=== PATIENT | female | born 1980 | race Caucasian/White ===

== ENCOUNTER 2025-04-29 13:40 | Inpatient (IN) | payer MEDICAID ==
[~2025-04-29] VITALS: Ht 167.6 cm; Wt 103.0 kg
--- NOTE | 2025-04-29 14:01 | ELECTROCARDIOGRAPH REPORT ---
[facility] Test Date: 2025-04-29 Test Time: 13:57:39 Pat Name: CHIQUITA WILDE Department: [facility]- Patient ID: [id number] Room: Gender: F [employer] Machine Operator: : 1980 Requested By: RENEE KERNS Order Number: [id number] Reading MD: Dr. Renee Kerns Measurements Intervals [place] Rate: 90 P: 57 SC: 171 QRS: 33 QRSD: 97 T: 31 QT: 378 QTc: 463 Interpretive Statements Sinus rhythm LAE, consider biatrial enlargement Abnormal inferior Q waves Borderline T abnormalities, anterior leads Electronically Signed On 04-29-2025 14:36:[address] Renee Kerns Please click the below link to view image of tracing.
--- NOTE | 2025-04-29 14:20 | RADIOLOGY REPORT ---
CHEST RADIOGRAPH Indication: CP Technique: Single frontal view of the chest was obtained Comparison: None FINDINGS: Lines and Tubes: None Lungs: No focal consolidation. Pleura: No effusion. No pneumothorax. Cardiomediastinal contours: Unremarkable Bones: No acute osseous abnormality. IMPRESSION: No acute cardiopulmonary disease.
[2025-04-29 14:21] LABS: MEAN PLATELET VOLUME 8.6 FL (7.4-10.4); RED CELL DISTRIBUTION WIDTH 14.8 % (11.5-14.5)
[2025-04-29 14:43] LABS: CREATININE 0.86 MG/DL (0.40-0.90); PRO BRAIN NATRIURETIC PEPTIDE 150 PG/ML (0-125); TOTAL CARBON DIOXIDE 22.6 MMOL/L (24-32); eCRCL 77 ML/MIN; eGFR 71 ML/MIN
--- NOTE | 2025-04-29 16:15 | Physician Documentation ---
History of Present Illness ~ Chief Complaint: Seizure Stated Complaint: SEIZURE Time Seen by MD: 15:51 OK to notify your PCP?: Yes Source: RN/MD, EMS, RN notes reviewed, EMS notes reviewed, old records Mode of Arrival: EMS, Ambulatory Exam Limitations: no limitations HPI This patient states when she was very young she used to do a fair amount of drugs but basically has led to clean sober life for the last several years. She states five years ago she has a syncopal episode she has had it was shows of dizziness also try germinal neuralgia but has not has a flare-up in three years she has been controlling it with diet she has had a couple episodes of shingles which is odd but she thinks she has controlled it with diet as well mostly just a kind of or diet. She has been doing well relatively speaking. 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 [place] she does not remember that is when she made many of her life changes and has never followed up does not have a primary care physician all of a sudden today at work she developed seizure-like activity she does not recall the event she was told that she had he was confused and postictal she did bite her tongue she did not have any incontinence. She denies any headache or vision changes she is feeling a bit better but she is now here for evaluation and care. She denies any weakness numbness no fevers or chills. Medication Reconciliation Allergies: Coded Allergies: Sulfa (Sulfonamide Antibiotics) (Verified Allergy, Unknown, 04/29/25) Past Medical History Past Medical History: Heart Valve Disease Smoking Status: Current every day smoker Alcohol Use: Sober Drug Use: other (X polysubstance drug abuser) Review of Systems All Other Systems at this time: Reviewed and Negative Physical Exam Vital Signs: RN Vital Signs have been reviewed: Yes, Temperature: 97.8, Source: Temporal, Heart Rate: 95, Respiratory Rate: 18, BP: 160/105, Pulse Oximetry: 98, Weight: 103.000 Physical Exam General: The patient is well developed, well nourished, nontoxic appearing and is in no acute distress. Skin: [place], warm and dry with no rashes. HEENT: Head was normocephalic and atraumatic. Eyes - pupils equal, round, reactive to light and accommodation. Extraocular movements were intact. Conjunctivae were nonicteric. The mouth and oropharynx were clear with moist mucous membranes. Neck: Supple and nontender. There was no jugular venous distention, lymphadenopathy, thyromegaly or masses. Chest: Clear to auscultation bilaterally without wheezes, rales or rhonchi. No accessory muscle use. Heart: Rate regular and rhythmic. S1, S2. No murmurs. Palpation of the chest wall was normal. No rubs or thrills. Abdomen: Soft, nontender and nondistended. Positive bowel sounds. No guarding or rebound. Extremities: No cyanosis, clubbing or edema. The patient moves all extremities. Pulses were equal and symmetric. Neurologic: Cranial nerves II-XII were intact. Sensation was intact to light touch throughout. Motor strength was 5/5 in all four extremities. Deep tendon reflexes were intact in both upper and lower extremities. Psychologic: The patient was oriented to person, place and time. The patient demonstrated appropriate judgement and insight. Progress Results/Orders Reviewed/noted all lab results: Yes Results/Orders Orders - BURAK HERRERA MD Chest,Single View (04/29/25 14:10) Monitor (04/29/25 13:48) Saline Lock (04/29/25 13:48) Oxygen (04/29/25 13:48) Electrocardiogram (04/29/25 13:48) Ct Head (04/29/25 16:30) [place] Prov.Neuro Consult (04/29/25 16:08) Page Hospitalist (04/29/25 17:04) Fill Out Med Reconciliation (04/29/25 17:04) [place] Prov.Neuro Consult (04/29/25 17:06) Mri Head (04/29/25 17:11) Completed Orders - BURAK HERRERA MD Chest,Single View (04/29/25 14:10) Cbc/Diff (04/29/25 13:48) BMP (04/29/25 13:48) PBNP (04/29/25 13:48) Electrocardiogram (04/29/25 13:48) Hs Troponin I W Calculations (04/29/25 13:48) Hs Troponin I W Calculations (04/29/25 15:48) Hs Troponin I W Calculations (04/29/25 16:48) Ct Head (04/29/25 16:30) Levetiracetam-[id number]/100ml (Levetira (04/29/25 16:10) Drug Screen, Urine (04/29/25 16:11) MG (04/29/25 14:05) CK (04/29/25 14:05) Medications Received in ER Medications (Trade) Dose Ordered Sig/Roselyn Route PRN Reason Start Time Stop Time Status Last Admin Dose Admin Levetiracetam 100 ml @ 400 mls/hr ONCE ONCE IV 04/29/25 16:10 04/29/25 16:24 DC 04/29/25 16:21 400 MLS/HR Sodium Chloride 1,000 ml @ 70 mls/hr [id number] IV 04/29/25 17:15 04/29/25 17:45 70 MLS/HR Vital Signs 04/29/25 04/29/25 13:49 15:21 Temp 97.8 Pulse 80 95 Resp 16 18 B/P (MAP) 163/100 160/105 (123) Pulse Ox 98 98 Laboratory Tests Test 04/29/25 14:05 04/29/25 15:45 04/29/25 16:19 04/29/25 17:06 White Blood Count 10.1 Red Blood Count 4.44 Hemoglobin 13.9 Hematocrit 40.6 Mean Corpuscular Volume 91.5 Mean Corpuscular Hemoglobin 31.3 H Mean Corpuscular Hemoglobin Concent 34.3 Red Cell Distribution Width 14.8 H Platelet Count 177 Mean Platelet Volume 8.6 Neutrophils (%) (Auto) 65.0 Lymphocytes (%) (Auto) 26.3 Monocytes (%) (Auto) 7.1 Eosinophils (%) (Auto) 1.3 Basophils (%) (Auto) 0.3 Neutrophils # (Auto) 6.6 Lymphocytes # (Auto) 2.6 Monocytes # (Auto) 0.7 Eosinophils # (Auto) 0.1 Basophils # (Auto) 0.0 CBC Comment Sodium Level 137 Potassium Level 3.5 Chloride Level 102 Carbon Dioxide Level 22.6 L Anion Gap 12 Blood Urea Nitrogen 14 Creatinine 0.86 Estimated GFR/1.73 m2 71 BUN/Creatinine Ratio 16.3 Glucose Level 132 H Calcium Level 8.9 Magnesium Level 1.8 Total Creatine Kinase 62 Troponin I High Sensitivity 5 10 11 Pro-B-Type Natriuretic Peptide 150 H Albumin 3.5 Chemistry Comments Troponin I High Sens Percent Delta 100 10 Troponin I Hi Sens Absolute Change 5 1 Urine Opiates Screen Negative Urine Methadone Screen Negative Urine Fentanyl Screen Negative Urine Barbiturates Screen Negative Urine Phencyclidine Screen Negative Urine Amphetamines Screen Negative Urine Benzodiazepines Screen Negative Urine Cocaine Screen Negative Urine Cannabinoids Screen Positive Drug Screen Comment Re-Evaluation Re-Evaluation : Re-Evaluation: Improved Progress Patient was seen and examined. Patient was given reassurance. Patient has a new onset seizure. She has a history of his questionable brain mass. CT scan was negative for any new bleed or obvious large mass. Patient will need an MRI as well as a new onset seizure workup. Neurology was consulted. Patient was given a loading dose of Keppra and for now may require medications. EEG was also considered but pending formal consultation by minna layton which is pending at this time. Patient appears comfortable laboratory work shows a normal CBC without anemia leukocytosis or any abnormalities. No signs of infection. Chemistry shows slightly decreased CO2 otherwise within normal limits. Troponins x3 were negative. Patient's tox screen is only positive for marijuana. Patient appears comfortable. Carotid artery ultrasound was negative as well as a negative CT and chest x-ray. Patient was then consulted to the hospitalist service who kindly agreed to admit the patient for further workup and care. Continuous monitor worker interpretation shows normal sinus rhythm heart rate 80s, no ectopy, normal, my interpretation. Pulse oximetry monitor interpretation shows normal oxygenation at 98% room air, normal, my interpretation. EKG/XRAY/CT/US/VASC/MRI EKG : Intepreting Monitor?: Yes Additional Comment Ordering Physician: BURAK HERRERA MD Exam Name: ELECTROCARDIOGRAM Technologist: [facility] Test Date: 2025-04-29 Test Time: 13:57:39 Pat Name: CHIQUITA WILDE Department: [facility]- Patient ID: [facility]-[id number] Room: Gender: F Windows Admin: : 1980 Requested By: BURAK HERRERA Order Number: [id number] Reading MD: Dr. Burak Herrera Measurements Intervals [place] Rate: 90 P: 57 OR: 171 QRS: 33 QRSD: 97 T: 31 QT: 378 QTc: 463 Interpretive Statements Sinus rhythm LAE, consider biatrial enlargement Abnormal inferior Q waves Borderline T abnormalities, anterior leads Electronically Signed On 04-29-2025 14:36:[address] Burak Herrera Please click the below link to view image of tracing. Chest X-Ray : Interpreted By: self Additional Comments CHEST RADIOGRAPH Indication: CP Technique: Single frontal view of the chest was obtained Comparison: None FINDINGS: Lines and Tubes: None Lungs: No focal consolidation. Pleura: No effusion. No pneumothorax. Cardiomediastinal contours: Unremarkable Bones: No acute osseous abnormality. IMPRESSION: No acute cardiopulmonary disease. : CT: head Impression CT CT HEAD Indication: aloc EXAM DATE: 04/29/2025 04:40 PM COMPARISON: None TECHNIQUE: CT of the head without intravenous contrast. RADIATION DOSE: CTDIvol: 65 mGy, DLP: 1098 mGy*cm FINDINGS: There is no intracranial hemorrhage. There is no extra-axial fluid, mass, mass effect or midline shift. The ventricles are midline and normal in size. Basilar cisterns are patent. Wright-white differentiation is maintained. Large right mastoid, middle ear effusion.. Imaged portion of the orbits are unremarkable. IMPRESSION: No intracranial hemorrhage or mass effect. Large right mastoid and middle ear effusion. Vascular : Vascular Study: carotid Impression Indication: Syncope/dizziness Technique: Real-time ultrasound images of the neck vessels with wright-scale, color and wave Doppler were obtained. Comparison: None Findings: Mild atherosclerotic plaque bilaterally. The following peak systolic velocities were recorded in cm/sec: Right internal carotid: 102 Right common carotid: 111 Right external carotid: 93 Right internal/common carotid ratio: 1.0 Left internal carotid: 109 Left common carotid: 132 Left external carotid: 101 Left internal/common carotid ratio: 1.0 Right vertebral artery: Patent with normal antegrade direction of flow. Left vertebral artery: Patent with normal antegrade direction of flow. Impression: No hemodynamically significant stenosis by velocity criteria. Medical Decision Making Additional information obtaine: old records Findings Brain mass versus new onset seizures Differential Dx:Considerations: Include: Hyperventilation, Psychogenic seizure, Due to alcohol withdrawl, Anticonvulsant withdrawl, Due to closed head injury, Due to CVA/TIA, Due to drug ingestion, Due to eclampsia, Due to hypocalcemia, Due to hypoglycemia, Due to hyponatremia, Due to hypoxemia, Idiopathic, Due to mass lesion, Due to meningitis, Syncope, Encephalopathy, Epilepsy-break through, Epilepsy-status, Other Departure Disposition: ADMITTED INPATIENT Admitted to Inpatient Unit: to hospitalist Admission Level of Care: Neuro with Tele Impression: Primary Impression: New onset seizure Condition: Fair Referrals: NO PRIMARY CARE PROVIDER (PCP) Education Educated: Patient Educated regarding: diagnosis, need for follow up, other Signature Scribe Signature: No Attestation: The note accurately reflects work and decisions made by me.Burak Herrera MD 04/29/25 19:48 BURAK HERRERA MD Apr 29, 2025 16:15
[2025-04-29] MEDS: levetiracetam-NACL1000mg/100ml 100 ML IV ONE (16:21)
[2025-04-29 16:55] LABS: URINE AMPHETAMINE SCREEN NEGATIVE (Neg); URINE BARBITUATE SCREEN NEGATIVE (Neg); URINE BENZODIAZEPINES SCREEN NEGATIVE (Neg); URINE CANNABINOID SCREEN POSITIVE (Neg); URINE COCAINE SCREEN NEGATIVE (Neg); URINE METHADONE SCREEN NEGATIVE (Neg); URINE OPIATE SCREEN NEGATIVE (Neg); URINE PHENCYCLIDINE SCREEN NEGATIVE (Neg)
--- NOTE | 2025-04-29 17:07 | RADIOLOGY REPORT ---
CT CT HEAD Indication: aloc EXAM DATE: 04/29/2025 04:40 PM COMPARISON: None TECHNIQUE: CT of the head without intravenous contrast. RADIATION DOSE: CTDIvol: 65 mGy, DLP: 1098 mGy*cm FINDINGS: There is no intracranial hemorrhage. There is no extra-axial fluid, mass, mass effect or midline shift. The ventricles are midline and normal in size. Basilar cisterns are patent. Wright-white differentiation is maintained. Large right mastoid, middle ear effusion.. Imaged portion of the orbits are unremarkable. IMPRESSION: No intracranial hemorrhage or mass effect. Large right mastoid and middle ear effusion.
[2025-04-29] MEDS ORDERED: HYDROcodone/acetaminophen 5mg/325mg tablet PO PRN (17:15)
[2025-04-29] MEDS ORDERED: magnesium sulf-water 4G/100mL 100 ML IV PRN (17:15)
[2025-04-29] MEDS ORDERED: potassium Cl 20 mEq SR tablet PO PRN ×2 (17:15)
[2025-04-29] MEDS ORDERED: magnesium sulf-water 2g/50mL 50 ML IV PRN (17:15)
[2025-04-29] MEDS ORDERED: ondansetron/PF 4mg/2ml inj IV PRN (17:15)
[2025-04-29] MEDS ORDERED: magnesium Cl slow-release 64mg tablet PO PRN (17:15)
[2025-04-29] MEDS ORDERED: magnesium hydroxide 30ml (MOM) UD suspension PO PRN (17:15)
[2025-04-29] MEDS ORDERED: potassium Cl 40MEQ/1/2NS 520ml 520 ML IV PRN (17:15)
[2025-04-29] MEDS ORDERED: bisacodyl 10mg suppository rectal RC PRN (17:15)
[2025-04-29] MEDS: normal saline 1000ml 1,000 ML IV SCH (17:45)
--- NOTE | 2025-04-29 18:27 | VASCULAR REPORT ---
Indication: Syncope/dizziness Technique: Real-time ultrasound images of the neck vessels with blanco-scale, color and wave Doppler were obtained. Comparison: None Findings: Mild atherosclerotic plaque bilaterally. The following peak systolic velocities were recorded in cm/sec: Right internal carotid: 102 Right common carotid: 111 Right external carotid: 93 Right internal/common carotid ratio: 1.0 Left internal carotid: 109 Left common carotid: 132 Left external carotid: 101 Left internal/common carotid ratio: 1.0 Right vertebral artery: Patent with normal antegrade direction of flow. Left vertebral artery: Patent with normal antegrade direction of flow. Impression: No hemodynamically significant stenosis by velocity criteria.
[2025-04-29] MEDS: K and/or MAG REPLACEMENT MC SCH (20:00)
[2025-04-29] MEDS: GADOTERATE MEGLUMINE 7.5 MMOL/15 ML VIAL IV ONE (20:51)
--- NOTE | 2025-04-29 21:01 | HISTORY AND PHYSICAL ---
History & Physical Providers to CC ~ History of Present Illness Reason for Admit\\Complaint: seizure-like activity History of Present Illness Patient is 44-year-old female current smoker and cannabis user. Her last cigarette was two weeks back but as per patient she is smoking since 1-1/2 years on regular basis. She denied use of any alcohol. Use cannabis for neuralgia/neuropathy. She came to ER with her concern regarding seizure-like activity. As per patient she does not have any old history of seizures or dizziness. She eats healthy diet and active in day today life. She mentioned she has lost lot of weight (which is intentional weight loss) . She was prescribed losartan for blood pressure which she is currently not taking. She mentioned her coworkers noticed that she passed out long enough that they called ambulance. As per ER records she passed out for 6 minutes. Passing episode associated with dizziness and nausea. She mentioned she passed out and do not know what happened unable to recall what the co-worker witnessed mentioned . She also mentioned that she had tongue bite but I have not noticed any bruise or sore area over the tongue during exam. As per ER records" This patient states when she was very young she used to do a fair amount of drugs but basically has led to clean sober life for the last several years. She states five years ago she has a syncopal episode she has had it was shows of dizziness also try germinal neuralgia but has not has a flare-up in three years she has been controlling it with diet she has had a couple episodes of shingles which is odd but she thinks she has controlled it with diet as well mostly just a kind of or diet. She has been doing well relatively speaking. 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 She denies any headache or vision changes she is feeling a bit better but she is now here for evaluation and care. She denies any weakness numbness no fevers or chills." Allergies: Coded Allergies: Sulfa (Sulfonamide Antibiotics) (Verified Allergy, Unknown, 04/29/25) Past Medical History Past Medical History Heart Valve Disease? Past Surgical History Surgical History Comment No pertinent past surgical history Past Social History Social History Comment Patient has pets and was worried about her pets . current smoker and cannabis user. Her last cigarette was two weeks back but as per patient she is smoking since 1-1/2 years on regular basis. She denied use of any alcohol. Use cannabis for neuralgia/neuropathy. ROS ROS Review of system as mentioned above in HPI rest of the review of system unremarkable Exam Vitals: Vital Signs Date Time Temp Pulse Resp B/P (MAP) Pulse Ox O2 Delivery O2 Flow Rate FiO2 04/29/25 18:37 97.8 75 15 187/116 (139) 98 General: General-patient not in any acute distress, alert awake oriented, age-appropriate HEENT-atraumatic normocephalic, neck supple without elevated JVD, no thyromegaly or carotid bruit. No lymphadenopathy bilaterally. Eyes-no icterus or pallor seen in eyes Chest-clear to auscultation bilaterally, breathing nonlabored no tachypnea, no wheezing, no crepitation, no crackles. Heart-S1-S2 normal, regular heart rate no murmur Abdomen bowel sounds positive on auscultation, soft nondistended nontender no guarding, no rigidity Skin no active skin rash/signs of chronic hyperpigmentation present over lower extremity Neurology-grossly intact, nonfocal alert awake oriented, no focal neurological deficit no arm drift no drooping of angle of mouth no tongue bite sign or bruise . No weakness over extremities Extremity- no pedal edema able to move all 4 extremities. No weakness over extremities Psychiatry - patient is not confused or agitated cooperated during physical examination Diagnostic Data Last Recorded Lab Results: 04/29/25 1405 04/29/25 1405 Advance Care Planning Advanced Care plannin - 30 Minutes Additional Plan Patient is 44-year-old female current smoker and cannabis user. Her last cigarette was two weeks back but as per patient she is smoking since 1-1/2 years on regular basis. She denied use of any alcohol. Use cannabis for neuralgia/neuropathy. She came to ER with her concern regarding seizure-like activity. Patient got loading dose of Keppra in ER. EEG and MRI of head ordered. Melinda neurology consultation ordered. Patient needs swallowing evaluation and physical therapy evaluation. Patient is started on IV fluids. Patient's blood pressure is elevated antihypertensive medication started today. We will continue to monitor patient's vitals. We will continue to monitor patient's labs and vitals closely . Needs physical therapy evaluation before discharge . Code status discussed with the patient patient wishes full code. Time spent in discussing code status 16 minutes. We will do home medication reconciliation once updated in electronic by nursing staff or pharmacist. Further management depending on response to treatment and as per recommendation by tele Neurology specialist . I will continue to follow patient in a.m. Date of Service: Apr 29, 2025 Billing Provider: YOANNA KAUR MD Common Visit Codes: 21447-[id number] INP/OBS CARE (HIGH) Secondary Visit Codes: 74941-[id number] CARE PLAN 30 MINUTES YOANNA KAUR MD Apr 29, 2025 21:01
--- NOTE | 2025-04-29 21:04 | RADIOLOGY REPORT ---
CLINICAL HISTORY: midbrain mass, new seizure with CONTRAST TECHNIQUE: Routine multiplanar imaging of the brain was performed with and without gadolinium contrast. COMPARISON: CT CT HEAD on DOS: 04/29/25 FINDINGS: There is no abnormal restricted diffusion to suggest acute infarction. There are no significant chronic small vessel ischemic foci. There is no evidence for acute ischemic changes, mass, mass effect, or extra- axial fluid collection. There is no hydrocephalus or midline shift. The cerebral sulci and subarachnoid cisterns are not effaced. There is a large right mastoid effusion. There is mild right maxillary sinus mucosal thickening. The globes are intact. The midline structures, including the corpus callosum, are unremarkable. The intracranial flow voids are maintained. IMPRESSION: No acute intracranial abnormality seen. No evidence for acute infarct. No significant white matter disease. Large right mastoid effusion.
[2025-04-29 21:58] VITALS: BP 169/99; PULSE 62; RESP 16; TEMP 97.9; O2SAT 100
[2025-04-29] MEDS: heparin, porcine 5000 units/ml vial SQ SCH (22:05)
--- NOTE | 2025-04-29 23:59 | [facility]URO CONSULT REPORT ---
[facility] Procedure [facility] Procedure Note Consult [facility] Note # Demographics Consult Type: General Neurology Patient Location: Emergency Room First Name: CHIQUITA Last Name: ANDRY Date of : 1980 Age: 44 Gender: Female Facility: [facility] Time of Initial Page (): 04/29/2025 16:07 First Contact with Site (): 04/29/2025 16:09 # HPI History: 44 yo F PMH HTN not taking her meds, polysubstance abuse remotely (20 years ago), etOh dependence (relapse 2023 for a few months, intermittent tob use abuse, MDD and RUAL was on ketamine no withdrawal per patient (last took 1.5 yrs), 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 1.5 yrs of dizzy spells/nausea like zenaida vu, last 1-2 min, every 2 months, no tongue biting, no urinary incontinence. No woking in morning with tongue biting, urinary inc or bruising. At work, dizzy, nausea, Zenaida Vu, sudden LOC, boss cause her, then no recollection woke in ambulance with evidence of tongue biting. Notes collapsed but no known history of shaking. with new onset seizures no tongue biting, no urinary incontinence. HCT no mass Keppra loaded 1500 mg EEG planned Little headache/ tired. Will call when video in room No need for call-back # Exam Time of Exam (): 04/29/2025 22:35 Mental Status: - alert and oriented x 3 Language: - normal speech Cranial Nerves: - no facial droop - normal facial sensation - extra ocular movements intact Motor: - no drift Sensory: - normal sensation # Data Head CT: R mastoid/middle ear effusion MRI: - no acute ischemia - per radiologist read R mastoid/middle ear effusion. viewed, no mass seen # Assessment Impression: - Seizure greatest concern for a seizure given the patient's history of current Zenaida Vu events and then having another Zenaida Vu event followed by loss of consciousness. patient also with no recollection of the event and would tongue biting also argues for seizure. she also does have risk factors for psychogenic non- epileptic seizures however would not have expected that patients have no recollection of the event at all and then having tongue biting as well. discussed a diagnostic approach versus starting with treatment patient would like to start with treatment she's already been given Keppra however she has severe psychiatric concerns including taking ketamine for severe depression and anxiety so Keppra would not be a good choice, she even would like to avoid Lamictal though it generally can help with mood the fact that it's a mood stabilizer and that there is some possibility it could have a negative effect on mood she would like to avoid this medication and instead she prefers Vimpat which tends to be mood neutral. # Plan Thrombolytic/Intervention: NOT IV Thrombolysis or IA Intervention candidate Thrombolytic/Intraarterial Exclusion: - IV thrombolytic and IA intervention considered but not recommended as this patient's symptoms are not clinically consistent with an assumed diagnosis of stroke Labs: - ua - urine drug screen - comprehensive metabolic panel - CBC - TSH Vimpat level in 2 weeks. EtOH Imaging: (urgency: routine): - MRI Brain with AND without contrast Diagnostic Test: - EEG EKG, if no arrhythmia then START Vimpat Medication: EKG, if no arrhythmia then START Vimpat 100 mg BID for 1 week, then 150 mg BID Other: - If patient has any neurological deterioration please call me back immediately - I have discussed my recommendations with the referring provider - seizure precautions Additional Recommendations: per ED neurology to leave a note for the hospitalist to review 04/30., discussed initial plan with ED # Logistics Attestation of consult completion: The patient is located at: [facility]. Facility staff participated in the visit. I performed this telemedicine visit from my offsite office utilizing interactive 2 way audio and visual telecommunication technology at the request of the onsite emergency room provider. Total time spent in telemedicine encounter: I spent 20 minutes reviewing clinical data and/or imaging, obtaining history, examining the patient, communicating with the onsite care team, and in preparation of this report. # Demographics First Name: CHIQUITA Last Name: ANDRY Facility: [facility] Electronically signed at 04/29/2025 23:58 ([place] Time) by Jasson Palacio MD Neuro Consult Order placed for: Yes JASSON PALACIO MD Apr 29, 2025 23:59
[2025-04-30 05:35] LABS: MEAN PLATELET VOLUME 9.2 FL (7.4-10.4); RED CELL DISTRIBUTION WIDTH 14.6 % (11.5-14.5)
[2025-04-30 05:52] LABS: CREATININE 1.05 MG/DL (0.40-0.90); TOTAL CARBON DIOXIDE 26.6 MMOL/L (24-32); eCRCL 63 ML/MIN; eGFR 57 ML/MIN
[2025-04-30 06:00] VITALS: BP 111/66; PULSE 58; RESP 14; TEMP 97.1; O2SAT 98
[2025-04-30 10:00] VITALS: BP 124/78; PULSE 64; RESP 16; TEMP 97.7; O2SAT 97
[2025-04-30] MEDS ORDERED: IBUP-2697 PO (10:38)
[2025-04-30] MEDS ORDERED: LACO100T2 PO (13:02)
[2025-04-30] MEDS ORDERED: LISI5TAB22 PO (13:05)
--- NOTE | 2025-04-30 19:50 | DISCHARGE SUMMARY ---
Discharge Summary Providers to CC ~ Discharge Summary Admission Diagnosis: SEIZURE-LIKE ACTIVITY Hospital Course DATE OF ADMISSION: April 29, 2025 DATE OF DISCHARGE:April 30, 2025 CBC testing done on April 30, 2025 WBC 9.2 hemoglobin 12.8 hematocrit 38.2 platelet count 172. Serum chemistry done on April 30, 2025 sodium 138 potassium 3.9 creatinine 1.05 GFR 57 normal liver enzymes proBNP 150. Urine drug screen positive for cannabis MRI HEADIMPRESSION: No acute intracranial abnormality seen. No evidence for acute infarct. No significant white matter disease. Large right mastoid effusion. VL CAROTIDImpression: No hemodynamically significant stenosis by velocity criteria. CT HEADIMPRESSION: No intracranial hemorrhage or mass effect. Large right mastoid and middle ear effusion. CHEST,SINGLE VIEW-IMPRESSION: No acute cardiopulmonary disease. Discharge Diagnosis\\Comment: seizure-like activity, current smoker and cannabis user, hypertension Operations\\Procedures: none Consultants: Klaus Palacio, tele Neurology specialist from [facility] Complications: none Condition on DC: Stable New Medications: Lacosamide (Vimpat) 100 Mg Tablet 1 TAB PO Q12H for 30 Days, #60 TAB 0 Refills Vimpat 100 mg BID for 1 week, then 150 mg BID Lisinopril (Lisinopril) 5 Mg Tablet 1 TAB PO DAILY for 30 Days, #30 TAB 0 Refills Discontinued Medications: Ibuprofen (Ibuprofen) 200 Mg Tablet 1 TAB PO Q4H for pain or fever for 2 Days, #12 TAB 0 Refills Discharge Summary: As per my history and physical exam" Patient is 44-year-old female current smoker and cannabis user. Her last cigarette was two weeks back but as per patient she is smoking since 1-1/2 years on regular basis. She denied use of any alcohol. Use cannabis for neuralgia/neuropathy. She came to ER with her concern regarding seizure-like activity. As per patient she does not have any old history of seizures or dizziness. She eats healthy diet and active in day today life. She mentioned she has lost lot of weight (which is intentional weight loss) . She was prescribed losartan for blood pressure which she is currently not taking. She mentioned her coworkers noticed that she passed out l riccardo enough that they called ambulance. As per ER records she passed out for 6 minutes. Passing episode associated with dizziness and nausea. She mentioned she passed out and do not know what happened unable to recall what the co-worker witnessed mentioned . She also mentioned that she had tongue bite but I have not noticed any bruise or sore area over the tongue during exam. As per ER records" This patient states when she was very young she used to do a fair amount of drugs but basically has led to clean sober life for the last several years. She states five years ago she has a syncopal episode she has had it was shows of dizziness also try germinal neuralgia but has not has a flare-up in three years she has been controlling it with diet she has had a couple episodes of shingles which is odd but she thinks she has controlled it with diet as well mostly just a kind of or diet. She has been doing well relatively speaking. 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 She denies any headache or vision changes she is feeling a bit better but she is now here for evaluation and care. She denies any weakness numbness no fevers or chills." She came to ER with her concern regarding seizure-like activity. Patient got loading dose of Keppra in ER. EEG and MRI of head ordered. Tele neurology consultation ordered and consult note reviewed. We followed the recommendation from tele Neurology specialist and Vimpat prescribed at the time of discharge. Patient passed swallowing evaluation and physical therapy evaluation. Patient's blood pressure was elevated antihypertensive medication started . We continued to monitor patient's vitals. Patient is feeling better she has been afebrile and getting discharged home in stable condition. Patient is seen and examined on the day of discharge. All labs, diagnostic workup and discharge plan discussed with patient and family members in detail before her discharge. All questions and queries answered to the best of my professional medical knowledge. I heard patient's concerns and address appropriately. Patient was cleared by Physical therapy team for home discharge . retail general manager involved in patient's discharge plan. Discharge instructions provided to the patient. Patient needs follow-up with primary care physician and Neurology specialist in outpatient setting in 1-2 weeks after hospital discharge. Please provide fall precautions document . Avoid NSAID group of pain medication which can increase blood pressure. Take your medication as recommended , read the side effects of all the medication and discussed with the PCP. Adjustment of blood pressure medication done during hospital stay. Maintain blood pressure and heart rate log book for 2-3 weeks and follow-up with the primary care physician for hypertension. General-patient not in any acute distress, alert awake oriented, age-appropriate HEENT-atraumatic normocephalic, neck supple without elevated JVD, no thyromegaly or carotid bruit. No lymphadenopathy bilaterally. Eyes-no icterus or pallor seen in eyes Chest-clear to auscultation bilaterally, breathing nonlabored no tachypnea, no wheezing, no crepitation, no crackles. Heart-S1-S2 normal, regular heart rate no murmur Abdomen bowel sounds positive on auscultation, soft nondistended nontender no guarding, no rigidity Skin no active skin rash/signs of chronic hyperpigmentation present over lower extremity Neurology-grossly intact, nonfocal alert awake oriented, no focal neurological deficit no arm drift no drooping of angle of mouth no tongue bite sign or bruise . No weakness over extremities. No seizure activity noticed Extremity- no pedal edema able to move all 4 extremities. No weakness over extremities Psychiatry - patient is not confused or agitated cooperated during physical examination *Problems/Diagnosis: (1) Witnessed seizure-like activity Total Time Spent on D/C: > 30 Minutes Date of Service: Apr 30, 2025 Billing Provider: YOANNA KAUR MD Common Visit Codes: 27831-FEX/OBS DISCH DAY >30min YOANNA KAUR MD Apr 30, 2025 19:40
--- NOTE | 2025-04-30 20:01 | BLUE SKY NEURO CONSULT REPORT ---
[facility] Procedure Note [facility] Procedure Note Consult [facility] Note # Demographics Type of EEG Read: - Routine EEG - video Patient Location: Inpatient First Name: Priscila Last Name: Arthur Date of : 1980 Age: 44 Gender: Female Facility: [facility] Time of Initial Page (): 04/30/2025 10:25 First Contact with Site (): 04/30/2025 10:35 # EEG Interpretation Start Time of EEG Read (): 04/30/2025 10:36 Stop Time of EEG Read (): 04/30/2025 10:58 Duration: 0h 22m Technical Details: - The EEG electrodes were placed using the standard International 10-20 system of electrode placement. Video and an accessory EKG lead were used during the course of this study. - This study was recorded using the [employer] EEG software Indication: Possible seizure # Description Photic Stimulation: Performed Hyperventilation: performed Phases Captured: - awake Symmetry: symmetric Posterior Dominant Rhythm: The record is continuous, of normal amplitude and bilaterally symmetrical. There is a well-developed posterior dominant rhythm at 12 Hz. There is a moderate amount of diffuse low amplitude 15-25 Hz beta activity and an appropriate/ amount of 4-7 Hz theta activity during wakefulness. No significant <4 Hz delta activity is present during wakefulness. With drowsiness, there is attenuation of the background alpha activity and a shift to slower frequencies. Amplitude: normal Reactivity: yes Variability: yes Continuity: continuous EKG: NSR # Abnormalities Epileptiform Abnormalities: - NOT present Focal Slowing: no Seizure: - NOT present No push button events # Impression Impression: normal # Clinical Correlation Clinical Correlation: A normal EEG does not exclude nor support the diagnosis of epilepsy. Additional Comments: Clinical correlation is recommended # Demographics First Name: Priscila Last Name: Arthur Facility: [facility] Neuro Consult Order placed for: Yes MARTI MADRID MD Apr 30, 2025 20:01
== END 2025-04-30 15:45 | disposition home or self-care (01) | DRG 53 ==
LOC: ER 13:41 → ED HOLD 17:17 → EDBEDREQ 19:38 → ORTHO 4S 21:37
PROVIDERS: ADMIT Internal Medicine; ATTEND Internal Medicine
PROC: 4A00X4Z Measurement of Central Nervous Electrical Activity, External Approach (ICD-10-PCS; principal; 2025-04-30)
DX: R56.9 Unspecified convulsions (principal); F12.90 Cannabis use, unspecified, uncomplicated; F17.200 Nicotine dependence, unspecified, uncomplicated; I10 Essential (primary) hypertension; Z88.2 Allergy status to sulfonamides
CPT/HCPCS: 36415; 70450; 70553; 71045; 80048; 80053; 80305; 82550; 83735; 83880; 84484; 85025; 87081; 93005; 93880; 95816; 96365; 96372; 97116; 97161; 97530; 99285; G0378; J1644; J1953; J7030